=== PATIENT | female | born 1955 | race Caucasian/White ===

== ENCOUNTER → 2016-12-20 | Outpatient (CLI) | payer BC ==
[2016-12-20 13:10] LABS: BASO % 0.5 % (0.0-1.0); EOS # 0.1 K/mm3 (0.0-0.50); EOS % 2.1 % (0.0-3.0); LARGE UNSTAINED CELL # 0.2 K/mm3 (0.0-0.4); LARGE UNSTAINED CELL % 3.4 % (0.0-4.0); LYMPH # 1.7 K/mm3 (1.5-4.5); LYMPH % 38.3 % (24.0-44.0); MEAN CORPUSCULAR HEMOGLOBIN 28.9 pg (27.0-33.0); MEAN CORPUSCULAR VOLUME 87.5 fl (80.0-96.0); MONO # 0.4 K/mm3 (0.0-0.8); MONO % 8.8 % (0.0-5.0); NEUTROPHILS # 2.1 K/mm3 (1.8-7.7); NEUTROPHILS % 46.9 % (36.0-66.0); PLATELET COUNT, AUTOMATED 285 k/mm3 (150-450); RED CELL DISTRIBUTION WIDTH 12.3 % (11.5-14.5); WHITE BLOOD COUNT 4.5 K/mm3 (4.0-10.0)
[2016-12-20 13:49] LABS: IMMUNOGLOBULIN E 54.9 IU/ML (<100)
[2016-12-22 14:14] LABS: ANTI TETANUS ANTIBODY 0.79 IU/mL (<0.10)
[2016-12-23 08:08] LABS: IgG SERUM (part of Subclasses) 943 mg/dL (700-1600); IgG Subclass 1 423 mg/dL (422-1292); IgG Subclass 2 354 mg/dL (117-747); IgG Subclass 3 28 mg/dL (41-129); IgG Subclass 4 100 mg/dL (1-291)
[2016-12-26 14:13] LABS: IMMUNOGLOBULIN D 0.82 mg/dL (<14.11); STREP PNEUMO TYPE 12F <0.3 ug/mL (>1.3); STREP PNEUMO TYPE 18C <0.3 ug/mL (>1.3); STREP PNEUMO TYPE 19A 1.6 ug/mL (>1.3); STREP PNEUMO TYPE 19F 2.6 ug/mL (>1.3); STREP PNEUMO TYPE 23F <0.3 ug/mL (>1.3); STREP PNEUMO TYPE 6B <0.3 ug/mL (>1.3); STREP PNEUMO TYPE 7F <0.3 ug/mL (>1.3); STREP PNEUMO TYPE 9N <0.3 ug/mL (>1.3); STREP PNEUMO TYPE 9V <0.3 ug/mL (>1.3)
== END ==
LOC: M SMT 09:12
PROVIDERS: ATTEND Nurse Practitioner Family
DX: D84.9 Immunodeficiency, unspecified (principal)

== ENCOUNTER → 2017-02-08 | Outpatient (REF) | payer BC ==
[2017-02-13 14:13] LABS: STREP PNEUMO TYPE 12F 1.3 ug/mL (>1.3); STREP PNEUMO TYPE 18C 0.6 ug/mL (>1.3); STREP PNEUMO TYPE 19A 11.7 ug/mL (>1.3); STREP PNEUMO TYPE 19F 7.9 ug/mL (>1.3); STREP PNEUMO TYPE 6B 56.9 ug/mL (>1.3); STREP PNEUMO TYPE 7F 5.2 ug/mL (>1.3); STREP PNEUMO TYPE 9N 2.8 ug/mL (>1.3); STREP PNEUMO TYPE 9V 2.1 ug/mL (>1.3)
== END ==
LOC: M LAB REF 11:15
PROVIDERS: ATTEND Nurse Practitioner Family
DX: J32.9 Chronic sinusitis, unspecified (principal)

== ENCOUNTER → 2018-01-08 | Outpatient (CLI) | payer BC | LOC: M RAD 14:01 | DX: J31.0 Chronic rhinitis (principal) ==

== ENCOUNTER → 2019-05-19 | Outpatient (REF) ==
[2019-05-19 17:42] LABS: BASO % 0.5 % (0.0-1.0); EOS # 0.1 10^3/uL (0.0-0.50); EOS % 0.8 % (0.0-3.0); HEMATOCRIT 42.4 % (36.0-47.0); LYMPH % 29.7 % (24.0-44.0); MEAN CORPUSCULAR HEMOGLOBIN 28.7 pg (27.0-33.0); MEAN CORPUSCULAR VOLUME 86.9 fl (80.0-96.0); MONO # 0.7 10^3/uL (0.0-0.8); MONO % 10.1 % (0.0-5.0); NEUTROPHILS # 3.9 10^3/uL (1.8-7.7); NEUTROPHILS % 58.6 % (36.0-66.0); PLATELET COUNT, AUTOMATED 267 10^3/uL (150-450); RED BLOOD COUNT 4.88 10^6/uL (4.00-5.40); WHITE BLOOD COUNT 6.6 10^3/uL (4.0-10.0)
== END ==
LOC: M LABSMT 17:11
PROVIDERS: ATTEND Allergy & Immunology Allergy
DX: J45.30 Mild persistent asthma, uncomplicated (principal)

== ENCOUNTER → 2025-03-03 | Outpatient (REF) | payer BC, MEDICARE ==
[2025-03-03 14:00] LABS: APPEARANCE, URINE CLEAR (CLEAR); BACTERIA, URINE AUTO NEGATIVE (NEGATIVE); BILIRUBIN, URINE AUTO NEGATIVE (NEGATIVE); BLOOD, URINE BLOOD NEGATIVE (NEGATIVE); COLOR, URINE STRAW (YELLOW); GLUCOSE, URINE (UA) AUTO NEGATIVE (NEGATIVE); KETONE, URINE AUTO NEGATIVE (NEGATIVE); LEUKOCYTE ESTERASE, URINE AUTO NEGATIVE (NEGATIVE); NITRITE, URINE AUTO NEGATIVE (NEGATIVE); PROTEIN, URINE AUTO NEGATIVE (NEGATIVE); RBC, URINE AUTO 0 /HPF (0-3); SPECIFIC GRAVITY URINE AUTO 1.005 (1.002-1.035); SQUAMOUS EPITHELIAL CELL UR AU 0 /HPF (0-6); UROBILINOGEN, URINE AUTO 0.2 mg/dL (0.0-2.0); WBC, URINE AUTO 0 /HPF (0-3)
== END ==
LOC: M SMT 12:50
PROVIDERS: ATTEND Nurse Practitioner Family
DX: R39.14 Feeling of incomplete bladder emptying (principal)